=== PATIENT | male | born 1995 | race African-American/Black ===

== ENCOUNTER 2017-09-05 11:30 | Emergency (ER) | payer BC ==
[~2017-09-05] VITALS: Ht 182.9 cm; Wt 79.1 kg
[2017-09-05 11:33] VITALS: BP 154/84; PULSE 58; TEMP 98.7
== END 2017-09-05 13:02 | disposition home or self-care (01) ==
LOC: COL.ER 11:30
DX: F32.9 Major depressive disorder, single episode, unspecified (principal); F41.9 Anxiety disorder, unspecified; F17.210 Nicotine dependence, cigarettes, uncomplicated; F12.90 Cannabis use, unspecified, uncomplicated

== ENCOUNTER → 2017-09-11 | Outpatient (REF) | LOC: COL.LAB 00:39 | DX: Z01.89 Encounter for other specified special examinations (principal) ==